=== PATIENT | female | born 1970 | race Caucasian/White ===

== ENCOUNTER 2017-03-31 09:50 | Emergency (ER) | payer OTHER ==
[2017-03-31 11:34] VITALS: BP 135/81
--- NOTE | 2017-05-04 22:51 | UC ---
Chris Zaldivar Benjamin, scribed for Ludmila Pantoja DO on 03/31/17 at 1154 . Respiratory Complaint HPI - HPI Summary HPI Summary: 46yo female c/o chest congestion and cough for 10 days. Pt reports getting some chest heaviness from cough. Pt also reports nose, poast nasal drip, runny nose, body aches. Hx of sinus surgery, and seasonal allergies. FHxof CAD, DM, HTN. - History of Current Complaint Chief Complaint: UCRespiratory Stated Complaint: COUGH CONGESTION Time Seen by Provider: 03/31/17 11:34 Hx Obtained From: Patient Hx Last Menstrual Period: 07/29/16 ?: No Onset/Duration: Gradual Onset, Lasting Days - 10 days, Still Present Timing: Constant Severity Initially: Mild Severity Currently: Mild Pain Intensity: 3 Character: Cough: Nonproductive Aggravating Factors: Allergens Alleviating Factors: Nothing Associated Signs And Symptoms: Positive: Pleuritic Chest Pain, Sinus Discomfort - Allergies/Home Medications Allergies/Adverse Reactions: Allergies Allergy/AdvReac Type Severity Reaction Status Date / Time No Known Allergies Allergy Verified 01/12/13 06:42 PMH/Surg Hx/FS Hx/Imm Hx Previously Healthy: Yes - Surgical History Surgical History: Yes Surgery Procedure, Year, and Place: Cyst removed from ovary/fallopian tube 2012 - Family History Known Family History: Positive: Cardiac Disease, Hypertension, Diabetes - Social History Occupation: Employed Full-time Lives: With Family Alcohol Use: Weekly Substance Use Type: None Smoking Status (MU): Heavy Every Day Tobacco Smoker Type: Cigarettes Amount Used/How Often: 1/2 to 1 ppd Have You Smoked in the Last Year: Yes Cessation Counseling: Patient Advised to Stop - Immunization History Most Recent Influenza Vaccination: no utd Most Recent Tetanus Shot: Thinks 2010 Most Recent Pneumonia Vaccination: none Review of Systems Constitutional: Negative Skin: Negative Eyes: Negative ENT: Nasal Discharge Respiratory: Cough, Other - chest congestion Cardiovascular: Negative Gastrointestinal: Negative Genitourinary: Negative Motor: Negative Neurovascular: Negative Musculoskeletal: Myalgia - body aches Neurological: Negative Psychological: Negative All Other Systems Reviewed And Are Negative: Yes Physical Exam Triage Information Reviewed: Yes Appearance: Well-Appearing, No Pain Distress, Obese Vital Signs: Initial Vital Signs Temp 98.8 F 03/31/17 11:30 Pulse 107 03/31/17 11:30 Resp 18 03/31/17 11:30 BP 135/81 03/31/17 11:30 Pulse Ox 99 03/31/17 11:30 Vital Signs Reviewed: Yes Eyes: Positive: Conjunctiva Clear. Negative: Discharge ENT: Positive: Hearing grossly normal. Negative: Muffled/hoarse voice Neck exam: Normal Neck: Positive: Supple Respiratory: Positive: No respiratory distress, No accessory muscle use, Wheezing - scattered, Expiration - prolonged Cardiovascular: Positive: RRR, No Murmur Musculoskeletal Exam: Normal Musculoskeletal: Positive: Strength Intact Neurological: Positive: Alert, Muscle Tone Normal Psychological: Positive: Age Appropriate Behavior Skin Exam: Normal Skin: Negative: rashes UC Diagnostic Evaluation - Laboratory O2 Sat by Pulse Oximetry: 99 Respiratory Course/Dx - Differential Dx/Diagnosis Differential Diagnosis/HQI/PQRI: Bronchitis, Lower Resp Infection, Sinusitis Provider Diagnoses: bronchitis Discharge - Discharge Plan Condition: Stable Disposition: HOME Prescriptions: Albuterol HFA INHALER* [Ventolin HFA Inhaler*] 2 puff INH Q4H PRN #1 mdi PRN Reason: Sob/Wheezing Azithromycin TAB* [Zithromax TAB (Z-REECE) 250 mg #6 tabs] 0 mg PO .SEE INSTRUCTIONS #6 tab guaiFENesin ER TAB [Mucinex*] 600 mg PO BID PRN #1 box PRN Reason: Cough guaiFENesin/CODIEN 100MG-10MG* [Robitussin AC 100Mg-10Mg*] 5 - 10 ml PO BEDTIME PRN #100 udc MDD 10ml PRN Reason: Cough predniSONE TAB* [Deltasone TAB*] 40 mg PO DAILY #10 tab Patient Education Materials: Acute Bronchitis (ED) Referrals: Sarika Locke [Primary Care Provider] - If Needed Additional Instructions: INHALED BRONCHODILATORS: You have received a prescription for an inhaled bronchodilator -- a medication which stimulates the airways in the lung to dilate. This improves the flow of air in asthma, bronchitis, and emphysema. These medicines have some similarity to adrenaline, and can cause similar side effects: shakiness, racing heart, and a sense of nervousness. These side effects decrease with time. Contact your doctor if these side effects are severe. Do not over-use the medicine. Too-frequent use of the inhaler may make it ineffective. Call your doctor if the inhaler is not controlling your symptoms at the prescribed doses. COUGH-SUPPRESSANT & EXPECTORANT MEDICATION: You are to use a cough medication as needed for relief of symptoms. This medicine is a combination of an expectorant (to make the mucous thinner and more easily "coughed up") and a cough suppressant (to reduce the frequency of coughing). The cough-suppressant medicine is related to narcotics. You may experience mild nausea and sleepiness. Some patients who are very sensitive to narcotics may have stomach pain from this medicine. Taking the medicine with food reduces these side effects. Do not drive or work with machinery until you know how this medicine affects you. The expectorant should have no side effects. Iodine-containing expectorants (such as organidin) should not be taken by persons with active thyroid disease unless approved by your doctor. Call the doctor if you develop shortness of breath, hives, rash, itching, lightheadedness, or severe nausea and vomiting. EXPECTORANT MEDICATION: WE SENT IN A SCRIPT FOR MUCINEX SO THAT IT IS EASIER FOR YOU TO PICK THE RIGHT MED AT THE PHARMACY. HOWEVER, YOU CAN ALSO GO TO THE [employer] STORE AND BUY PLAIN GUAIFENESIN WITHOU BINDERS OR FILLERS. An expectorant medicine has been prescribed. This type of drug makes mucous thinner, helping the sinuses, nose, and bronchial tubes to remain free of pus and mucous. Expectorants make a cough less severe and more comfortable, and help infected sinuses drain. In general, antihistamines defeat the purpose of the expectorant by making mucous thicker. They should be avoided unless specifically recommended by your physician. CORTICOSTEROID MEDICATION: You have been given a medicine of the cortisone class. This medication is used to control inflammation or allergy. It is usually only given for a short period of time, until the acute process subsides. There are usually no side effects from short-term use of cortisone-like medications. Some persons feel an increased sense of well-being and are not sleepy at bedtime. Long-term use of cortisone medications is best avoided, unless required for a severe condition. If your condition does not remit, or relapses after the course of corticosteroid medication, you should consult your physician. Contact the physician if you develop lightheadedness, black or tarry stools , swelling of the legs, or significant rapid change in weight. ANTIBIOTICS ARE NOT CURRENTLY INDICATED FOR YOUR CONDITION. hOWEVER, IF YOU R SYMPTOMS WORSEN OR PERSIST FOR MORE THAN 3 MORE DAYS, YOU CAN TAKE THE FOLLOWING MEDICATION: AZITHROMYCIN: Azithromycin (Zithromax) is a broad spectrum antibiotic in the same class as erythromycin. It can treat a variety of bacterial infections, but is most frequently used for respiratory infections. Azithromycin is extremely long-lasting. It accumulates in body tissues and continues to kill bacteria for many days. In order to improve absorption, Azithromycin should be taken at least one hour before or two hours after a meal. It does not have the same strong tendency to upset the stomach as erythromycin and is usually very well tolerated. Patients who have had a rash or other true allergic reactions to erythromycin should not take this medication. Call if you develop gastrointestinal distress, severe diarrhea, rash, hives, itching, or shortness of breath. ANYTIME YOU TAKE AN ANTIBIOTIC, IT IS IMPORTANT TO REPLENISH THE BODY'D SUPPLY OF "GOOD BACTERIA." YOU CAN GET GOOD BACTERIA FROM HIGH QUALITY CULTURED FOODS SUCH LOCAL YOGURT, SOUR KRAUT, IRVIN VON, NATURALLY FERMENTED PICKLES AND PROBIOTIC DRINKS. YOU CAN ALSO GET GOOD BACTERIA FROM A PROBIOTIC SUPPLEMENT. STOP SMOKING: You should stop smoking. The tar and chemicals in cigarette smoke are harmful. Smoking has been shown to cause: emphysema chronic bronchitis lung cancer mouth and throat cancer stomach and pancreas cancer premature aging defects In addition, smoking increases ear and lung infections in children of smokers. The documentation as recorded by the Chris perez Benjamin accurately reflects the service I personally performed and the decisions made by me, Ludmila Pantoja DO.
== END 2017-03-31 12:07 | disposition home or self-care (01) ==
LOC: UCEAST 09:50
DX: J40 Bronchitis, not specified as acute or chronic (principal); R09.81 Nasal congestion; E66.9 Obesity, unspecified; F17.210 Nicotine dependence, cigarettes, uncomplicated
CPT/HCPCS: 99211; G0463

== ENCOUNTER 2017-07-17 08:23 | Emergency (ER) | payer OTHER ==
--- NOTE | 2017-07-17 10:34 | UC ---
Hip/Pelvis Pain - HPI Summary HPI Summary: Left hip pain x 1 day stairs hurt sitting on toilet bowl hurts no injury has had similar but less severe pain in the past no back pain - History Of Current Complaint Chief Complaint: UCLowerExtremity Stated Complaint: HIP INJURY Time Seen by Provider: 07/17/17 09:09 Hx Last Menstrual Period: 07/04/17 Onset/Duration: Gradual Onset, Lasting Hours Timing: Constant Severity Initially: Moderate Severity Currently: Moderate Pain Intensity: 6 Pain Scale Used: 0-10 Numeric Character Of Pain: Sharp, Aching Aggravating Factor(s): Movement Alleviating Factor(s): Nothing Associated Signs And Symptoms: Positive: Negative - Allergies/Home Medications Allergies/Adverse Reactions: Allergies Allergy/AdvReac Type Severity Reaction Status Date / Time No Known Allergies Allergy Verified 01/12/13 06:42 PMH/Surg Hx/FS Hx/Imm Hx Previously Healthy: Yes Cardiovascular History: Hypertension - Surgical History Surgical History: Yes Surgery Procedure, Year, and Place: Cyst removed from ovary/fallopian tube 2012. Sinus surgery 04/04 - Family History Known Family History: Positive: Cardiac Disease, Hypertension, Diabetes - Social History Alcohol Use: Weekly Alcohol Amount: weekend Substance Use Type: None Smoking Status (MU): Heavy Every Day Tobacco Smoker Type: Cigarettes Amount Used/How Often: 1/2 to 1 ppd Have You Smoked in the Last Year: Yes - Immunization History Most Recent Influenza Vaccination: no utd Most Recent Tetanus Shot: Thinks 2010 Most Recent Pneumonia Vaccination: none Review of Systems Constitutional: Negative Skin: Negative Eyes: Negative ENT: Negative Respiratory: Negative Cardiovascular: Negative Gastrointestinal: Negative Genitourinary: Negative Motor: Negative Neurovascular: Negative Musculoskeletal: Arthralgia Neurological: Negative Psychological: Negative Is Patient Immunocompromised?: No All Other Systems Reviewed And Are Negative: Yes Physical Exam Triage Information Reviewed: Yes Appearance: Well-Appearing, No Pain Distress, Well-Nourished Vital Signs: Initial Vital Signs Temp 97.0 F 07/17/17 08:52 Pulse 97 07/17/17 08:52 Resp 18 07/17/17 08:52 BP 158/97 07/17/17 08:52 Pulse Ox 99 07/17/17 08:52 Eyes: Positive: Conjunctiva Clear ENT: Positive: Hearing grossly normal. Negative: Nasal congestion, Nasal drainage, Trismus, Muffled/hoarse voice Neck: Positive: Supple, Nontender Respiratory: Positive: Lungs clear, Normal breath sounds, No respiratory distress Cardiovascular: Positive: RRR, No Murmur Musculoskeletal: Positive: ROM Intact, No Edema, Other: - see image Neurological: Positive: Alert Psychological Exam: Normal Skin Exam: Normal Diagnostics - Radiology No standard instances Xray Interpretation: No Acute Changes Radiology Interpretation Completed By: Radiologist Hip Injury Course/Dx - Differential Dx/Diagnosis Differential Diagnosis/HQI/PQRI: Bursitis, Sprain, Strain, Tenosynovitis, Other - lumbar radiculopathy Provider Diagnoses: left hip pain of uncertain cause Discharge - Discharge Plan Condition: Stable Disposition: HOME Prescriptions: Cyclobenzaprine TAB* [Flexeril TAB*] 5 mg PO TID PRN #15 tab PRN Reason: Spasms Naproxen Sodium [Naproxen Sodium 500 MG TAB] 500 mg PO BID PRN #30 tab PRN Reason: Pain Patient Education Materials: Hip Pain (ED) Forms: *Work Release Referrals: Sarika Locke [Primary Care Provider] - 1 Week (if not better) Additional Instructions: I am unsure of the cause of your hip pain ? bursitis ? sciatica? ? tendonitis ? piriformis syndrome please recheck with your provider next week don't take muscle relaxant and drive Images Front/Back of Body, Lg ([place]): 1 - pain here but not tender over greater troch 2 - pain- not tender 3 - radiates to knee
--- NOTE | 2017-07-17 10:37 | RAD ---
HISTORY: Constant left hip pain COMPARISONS: None VIEWS: 3, Frontal view of the pelvis with frontal and frog-leg views of the left hip FINDINGS: BONE DENSITY: Normal. BONES: There is no displaced fracture. JOINTS: There is no arthropathy. ALIGNMENT: There is no dislocation. SOFT TISSUES: Unremarkable. OTHER FINDINGS: There is a mild levoscoliotic curvature of the spine IMPRESSION: NO ACUTE OSSEOUS INJURY. IF SYMPTOMS PERSIST, RECOMMEND REPEAT IMAGING.
[2017-07-17 10:45] VITALS: BP 123/84
== END 2017-07-17 10:45 | disposition home or self-care (01) ==
LOC: UCEAST 08:23
DX: M25.552 Pain in left hip (principal); I10 Essential (primary) hypertension; F17.210 Nicotine dependence, cigarettes, uncomplicated
CPT/HCPCS: 99212; G0463

== ENCOUNTER 2019-06-27 09:07 | Emergency (ER) | payer OTHER ==
[2019-06-27 09:56] LABS: ABS Basophils 0.1 10^3/ul (0-0.2); ABS Eosinophils 0.1 10^3/ul (0-0.6); ABS Lymphocytes 1.9 10^3/ul (1.0-4.8); ABS Monocytes 0.4 10^3/ul (0-0.8); ABS Neutrophils 4.5 10^3/ul (1.5-7.7); Hematocrit 44 % (35-47); Hemoglobin 15.2 g/dL (12.0-16.0); Lymphocyte % 27.1 %; Mean Corpuscular HGB Conc 34 g/dL (31-36); Mean Corpuscular Hemoglobin 32 pg (27-31); Mean Corpuscular Volume 94 fL (80-97); Mean Platelet Volume 10.9 fL (7.4-10.4); Nucleated Red Blood Cells % 0.1; Platelet Count 187 10^3/uL (150-450); Red Blood Count 4.71 10^6 /uL (3.70-4.87); Red Cell Distribution Width 14 % (10-15); White Blood Count 7.1 10^3/uL (3.5-10.8)
[2019-06-27 10:01] LABS: INR 0.91 (0.82-1.09)
[2019-06-27 10:13] LABS: Albumin 4.7 g/dL (3.2-5.2); Albumin/Globulin Ratio 1.7 (1-3); BUN/Creatinine Ratio 18.3 (8-20); C Reactive Protein 9.02 mg/L (<8.01); Calcium 9.7 mg/dL (8.6-10.3); EGFR African American 105.9 (>60); EGFR Non-African American 87.5 (>60); Globulin 2.7 g/dL (2-4); Magnesium 2.2 mg/dL (1.9-2.7); Total Bilirubin 0.5 mg/dL (0.2-1.0); Total Protein 7.4 g/dL (6.4-8.9)
[2019-06-27] MEDS ORDERED: Iohexol 300* (CONTRAST) 10 ML SDV IV ONE (10:23)
[2019-06-27 10:31] LABS: Urine Appearance Clear; Urine Bilirubin Negative (Negative); Urine Blood Negative (Negative); Urine Color Straw; Urine Glucose Negative (Negative); Urine Ketones Negative (Negative); Urine Nitrite Negative (Negative); Urine Protein Negative (Negative); Urine Specific Gravity 1.002 (1.010-1.030); Urine Urobilinogen Negative (Negative)
[2019-06-27 12:44] VITALS: BP 132/74
--- NOTE | 2019-07-13 09:32 | ED ---
Nausea/Vomiting/Diarrhea HPI - HPI Summary HPI Summary: This patient is a 48-year-old female who is otherwise healthy presented to the ED with concern for blood in stool yesterday. She states she had a bowel movement this morning, but denies any blood in the stool. She states she is concerned for cancer she has cancer in her family and she is a current smoker. She denies any abdominal pain, nausea, vomiting, diarrhea or constipation. She denies any hematemesis or melena. Red blood per rectum 1 with spontaneous resolution. She denies any fevers, sweats, chills. She denies any headaches, medication changes for symptoms of fatigue. She has never had this in the past. She denies any history of hemorrhoids. - History of Current Complaint Chief Complaint: EDGIBleed Stated Complaint: BLOOD IN STOOL PER PT Time Seen by Provider: 06/27/19 09:22 Hx Obtained From: Patient Hx Last Menstrual Period: 07/04/17 ?: No Onset/Duration: Sudden Onset Timing: Constant Severity Initially: Mild Severity Currently: Mild Pain Intensity: 0 Pain Scale Used: 0-10 Numeric Aggravating Factor(s): Nothing Alleviating Factor(s): Nothing Diarrhea Presence: No Diarrhea Characteristics: Bright Red Blood per Rect - Risk Factors Influenza Risk Factors: Negative Surgical Obstruction Risk Factor(s): Negative - Allergies/Home Medications Allergies/Adverse Reactions: Allergies Allergy/AdvReac Type Severity Reaction Status Date / Time No Known Allergies Allergy Verified 06/27/19 09:12 PMH/Surg Hx/FS Hx/Imm Hx Previously Healthy: Yes Endocrine/Hematology History: Denies: Hx Diabetes, Hx Thyroid Disease Cardiovascular History: Reports: Hx Hypertension - CONTROL WITH MEDICATION Respiratory History: Denies: Hx Asthma, Hx Chronic Obstructive Pulmonary Disease (COPD) GI History: Denies: Hx Ulcer Sensory History: Reports: Hx Contacts or Glasses - READING GLASSES Denies: Hx Hearing Aid Opthamlomology History: Reports: Hx Contacts or Glasses - READING GLASSES - Cancer History Hx Chemotherapy: No Hx Radiation Therapy: No - Surgical History Surgery Procedure, Year, and Place: Cyst removed from ovary/fallopian tube 2012. Sinus surgery 04/04 - Immunization History Hx Pertussis Vaccination: No Immunizations Up to Date: Yes Infectious Disease History: No Infectious Disease History: Denies: Hx Clostridium Difficile, Hx Hepatitis, Hx Human Immunodeficiency Virus (HIV), Hx of Known/Suspected MRSA, Hx Shingles, Hx Tuberculosis, Hx Known/ Suspected VRE, Hx Known/Suspected VRSA, History Other Infectious Disease, Traveled Outside the [place] in Last 30 Days - Family History Known Family History: Positive: Cardiac Disease, Hypertension, Diabetes - Social History Occupation: Employed Full-time Lives: With Family Alcohol Use: Weekly Alcohol Amount: weekend Hx Substance Use: No Substance Use Type: Reports: None Hx Tobacco Use: Yes Smoking Status (MU): Heavy Every Day Tobacco Smoker Type: Cigarettes Amount Used/How Often: 1/2 to 1 ppd Have You Smoked in the Last Year: Yes Review of Systems Negative: Fever, Chills, Fatigue, Skin Diaphoresis Negative: Palpitations, Chest Pain Negative: Shortness Of Breath, Cough Positive: Other - bloody stool. Negative: Abdominal Pain, Vomiting, Diarrhea, Nausea Genitourinary: Negative Positive: no symptoms reported, see HPI Negative: Arthralgia, Myalgia Skin: Negative Neurological: Negative All Other Systems Reviewed And Are Negative: Yes Physical Exam Triage Information Reviewed: Yes Vital Signs On Initial Exam: Initial Vitals Temp Pulse Resp BP Pulse Ox 97.7 F 95 16 167/101 98 06/27/19 09:08 06/27/19 09:08 06/27/19 09:08 06/27/19 09:08 06/27/19 09:08 Vital Signs Reviewed: Yes Appearance: Positive: Well-Appearing, Well-Nourished Skin: Positive: Warm, Skin Color Reflects Adequate Perfusion Head/Face: Positive: Normal Head/Face Inspection Eyes: Positive: EOMI, Conjunctiva Clear Neck: Positive: Supple, No Lymphadenopathy Respiratory/Lung Sounds: Positive: Clear to Auscultation, Breath Sounds Present Cardiovascular: Positive: RRR, Pulses are Symmetrical in both Upper and Lower Extremities Musculoskeletal: Positive: Normal, Strength/ROM Intact Neurological: Positive: Sensory/Motor Intact, Alert, Oriented to Person Place, Time, Speech Normal Psychiatric: Positive: Affect/Mood Appropriate Diagnostics - Vital Signs Vital Signs Temp Pulse Resp BP Pulse Ox 06/27/19 12:43 97.8 F 85 16 132/74 100 06/27/19 09:08 97.7 F 95 16 167/101 98 - Laboratory Lab Results: Lab Results 06/27/19 06/27/19 06/27/19 Range/Units 09:46 09:46 09:46 WBC 7.1 (3.5-10.8) 10^3/uL RBC 4.71 (3.70-4.87) 10^6 /uL Hgb 15.2 (12.0-16.0) g/dL Hct 44 (35-47) % MCV 94 (80-97) fL MCH 32 H (27-31) pg MCHC 34 (31-36) g/dL RDW 14 (10-15) % Plt Count 187 (150-450) 10^3/uL MPV 10.9 H (7.4-10.4) fL Neut % (Auto) 63.9 % Lymph % (Auto) 27.1 % [place] % (Auto) 5.9 % Eos % (Auto) 2.0 % Baso % (Auto) 1.1 % Absolute Neuts (auto) 4.5 (1.5-7.7) 10^3/ul Absolute Lymphs (auto) 1.9 (1.0-4.8) 10^3/ul Absolute Monos (auto) 0.4 (0-0.8) 10^3/ul Absolute Eos (auto) 0.1 (0-0.6) 10^3/ul Absolute Basos (auto) 0.1 (0-0.2) 10^3/ul Absolute Nucleated RBC 0.0 10^3/ul Nucleated RBC % 0.1 INR (Anticoag Therapy) (0.82-1.09) Sodium 138 (135-145) mmol/L Potassium 4.0 (3.5-5.0) mmol/L Chloride 109 (101-111) mmol/L Carbon Dioxide 22 (22-32) mmol/L Anion Gap 7 (2-11) mmol/L BUN 13 (6-24) mg/dL Creatinine 0.71 (0.51-0.95) mg/dL Est GFR ( Amer) 105.9 (>60) Est GFR (Non-Af Amer) 87.5 (>60) BUN/Creatinine Ratio 18.3 (8-20) Glucose 109 H (70-100) mg/dL Lactic Acid 1.4 (0.5-2.0) mmol/L Calcium 9.7 (8.6-10.3) mg/dL Magnesium 2.2 (1.9-2.7) mg/dL Total Bilirubin 0.50 (0.2-1.0) mg/dL AST 15 (13-39) U/L ALT 20 (7-52) U/L Alkaline Phosphatase 85 (34-104) U/L C-Reactive Protein 9.02 H (<8.01) mg/L Total Protein 7.4 (6.4-8.9) g/dL Albumin 4.7 (3.2-5.2) g/dL Globulin 2.7 (2-4) g/dL Albumin/Globulin Ratio 1.7 (1-3) Lipase 15 (11.0-82.0) U/L Urine Color Urine Appearance Urine pH (5-9) Ur Specific [place] (1.010-1.030) Urine Protein (Negative) Urine Ketones (Negative) Urine Blood (Negative) Urine Nitrate (Negative) Urine Bilirubin (Negative) Urine Urobilinogen (Negative) Ur Leukocyte Esterase (Negative) Urine Glucose (Negative) 06/27/19 06/27/19 Range/Units 09:46 10:20 WBC (3.5-10.8) 10^3/uL RBC (3.70-4.87) 10^6 /uL Hgb (12.0-16.0) g/dL Hct (35-47) % MCV (80-97) fL MCH (27-31) pg MCHC (31-36) g/dL RDW (10-15) % Plt Count (150-450) 10^3/uL MPV (7.4-10.4) fL Neut % (Auto) % Lymph % (Auto) % [place] % (Auto) % Eos % (Auto) % Baso % (Auto) % Absolute Neuts (auto) (1.5-7.7) 10^3/ul Absolute Lymphs (auto) (1.0-4.8) 10^3/ul Absolute Monos (auto) (0-0.8) 10^3/ul Absolute Eos (auto) (0-0.6) 10^3/ul Absolute Basos (auto) (0-0.2) 10^3/ul Absolute Nucleated RBC 10^3/ul Nucleated RBC % INR (Anticoag Therapy) 0.91 (0.82-1.09) Sodium (135-145) mmol/L Potassium (3.5-5.0) mmol/L Chloride (101-111) mmol/L Carbon Dioxide (22-32) mmol/L Anion Gap (2-11) mmol/L BUN (6-24) mg/dL Creatinine (0.51-0.95) mg/dL Est GFR ( Amer) (>60) Est GFR (Non-Af Amer) (>60) BUN/Creatinine Ratio (8-20) Glucose (70-100) mg/dL Lactic Acid (0.5-2.0) mmol/L Calcium (8.6-10.3) mg/dL Magnesium (1.9-2.7) mg/dL Total Bilirubin (0.2-1.0) mg/dL AST (13-39) U/L ALT (7-52) U/L Alkaline Phosphatase (34-104) U/L C-Reactive Protein (<8.01) mg/L Total Protein (6.4-8.9) g/dL Albumin (3.2-5.2) g/dL Globulin (2-4) g/dL Albumin/Globulin Ratio (1-3) Lipase (11.0-82.0) U/L Urine Color Straw Urine Appearance Clear Urine pH 7.0 (5-9) Ur Specific [place] 1.002 L (1.010-1.030) Urine Protein Negative (Negative) Urine Ketones Negative (Negative) Urine Blood Negative (Negative) Urine Nitrate Negative (Negative) Urine Bilirubin Negative (Negative) Urine Urobilinogen Negative (Negative) Ur Leukocyte Esterase Negative (Negative) Urine Glucose Negative (Negative) Result Diagrams: 06/27/19 09:46 06/27/19 09:46 Lab Statement: Any lab studies that have been ordered have been reviewed, and results considered in the medical decision making process. Naus/Vom/Diarrhea Course/Dx - Course Course Of Treatment: This patient is evaluated for bright red blood per rectum 1 yesterday. She states she's never had this before. Last bowel movement was this morning and was normal. She denies any fevers, sweats, chills she denies any abdominal pain, nausea, vomiting, diarrhea or constipation. On physical examination, patient appears well with no abdominal tenderness throughout all 4 quadrants. Lungs CTA, RRR. No fever and vital signs are stable. CT abdomen and pelvis obtained due to her blood in stool and family CA history. This shows no acute infection or acute pathology for patient's symptoms. This patient is is feeling well she will follow-up with her PCP and is diagnosed with bloody stool. - Differential Dx/Diagnosis Differential Diagnoses - Female: Other - BRBPR, hemorroids, GI bleed Provider Diagnosis: Bloody stool Condition At Discharge: Stable Discharge ED - Sign-Out/Discharge Documenting (check all that apply): Patient Departure Patient Received Moderate/Deep Sedation with Procedure: No - Discharge Plan Condition: Stable Disposition: HOME Patient Education Materials: Diverticulosis (ED) Referrals: Sarika Locke [Primary Care Provider] - Additional Instructions: Please follow up with PCP I have given you information regarding diverticulosis If symptoms get worse -return to the ED - Billing Disposition and Condition Condition: STABLE Disposition: Home
== END 2019-06-27 12:43 | disposition home or self-care (01) ==
LOC: ED 09:07
DX: K57.90 Diverticulosis of intestine, part unspecified, without perforation or abscess without bleeding (principal); I10 Essential (primary) hypertension; F17.210 Nicotine dependence, cigarettes, uncomplicated; Z79.899 Other long term (current) drug therapy
CPT/HCPCS: 36415; 74177; 80053; 81003; 83605; 83690; 83735; 85025; 85610; 86140; 99282; Q9967